=== PATIENT | male | born 1995 | race African-American/Black ===

== ENCOUNTER 2021-01-20 11:04 | Emergency (ER) | payer MEDICAID, SELFPAY ==
[~2021-01-20] VITALS: Ht 188 cm; Wt 67.1 kg
[2021-01-20 11:20] VITALS: BP_SYST 126
[2021-01-20] MEDS ORDERED: IPRATROPIUM/ALBUTEROL SULFATE 3 ML AMPUL.NEB (DUONEB) INH ONE (11:30)
[2021-01-20] MEDS ORDERED: ALBMDI INH (12:57)
[2021-01-20] MEDS ORDERED: PRED20TA PO (12:57)
[2021-01-20 13:27] VITALS: BP_SYST 106
== END 2021-01-20 13:27 | disposition home or self-care (01) ==
LOC: SED 11:04
DX: J20.9 Acute bronchitis, unspecified (principal); Z20.822 Contact with and (suspected) exposure to COVID-19; Z79.899 Other long term (current) drug therapy
CPT/HCPCS: 36415; 71045; 94640; 99284